=== PATIENT | female | born 1950 | race Caucasian/White ===

== ENCOUNTER 2017-08-20 21:29 | Inpatient (IN) | payer MEDICARE ==
[2017-08-20] MEDS: IV NORMAL SALINE 1000ML BAG 1,000 ML IV (00:10)
[2017-08-20 22:52] LABS: BILIRUBIN,URINE NEGATIVE (NEG); CLARITY,URINE CLEAR; GLUCOSE,URINE >=1000 mg/dL (NEG); NITRITE,URINE NEGATIVE (NEG); PROTEIN,URINE NEGATIVE (NEG-TRACE); UROBILINOGEN,URINE 0.2 mg/dL (0.2 mg/dL)
[2017-08-20 22:55] LABS: COLOR,URINE STRAW
[2017-08-20 22:58] LABS: BACTERIA,URINE 0 /HPF (0-FEW); SQUAMOUS EPITHELIAL CELL,UR FEW /LPF; WBC,URINE 0 /HPF (0-4)
[2017-08-20 22:59] LABS: ADD MAN DIFF? NO
[2017-08-20 23:03] LABS: BASO # 0.1 x10^3/uL (0.0-0.2); BASO % 0 % (0-3); EOS % 0 % (0-3); HEMATOCRIT 45.7 % (36.0-47.0); HEMOGLOBIN 14.7 g/dL (12.0-15.5); LYMPH # 1.8 x10^3/uL (1.0-4.8); LYMPH % 9 % (24-48); MEAN CORPUSCULAR HEMOGLOBIN 28 pg (25-35); MEAN CORPUSCULAR HGB CONC 32 g/dL (31-37); MEAN CORPUSCULAR VOLUME 87 fL (79-100); MONO # 0.9 x10^3/uL (0.0-1.1); MONO % 5 % (0-9); NEUT # 16.7 x10^3uL (1.8-7.7); NEUT % 86 % (31-73); PLATELET COUNT 296 x10^3/uL (140-400); RED BLOOD COUNT 5.23 x10^6/uL (3.50-5.40); RED CELL DISTRIBUTION WIDTH 13.8 % (11.5-14.5); WHITE BLOOD COUNT 19.5 x10^3/uL (4.0-11.0)
[2017-08-20 23:10] LABS: PROTHROMBIN TIME PATIENT 12.3 SEC (11.7-14.0)
[2017-08-20 23:13] LABS: ANION GAP 7 (6-14); BLOOD UREA NITROGEN 30 mg/dL (7-20); BUN/CREATININE RATIO 25 (6-20); CALCIUM 9.2 mg/dL (8.5-10.1); CARBON DIOXIDE 33 mmol/L (21-32); CHLORIDE 101 mmol/L (98-107); CREATININE 1.2 mg/dL (0.6-1.0); GFR 45.1; GLUCOSE 275 mg/dL (70-99); POTASSIUM 3.6 mmol/L (3.5-5.1); SODIUM 141 mmol/L (136-145)
[2017-08-20 23:19] LABS: ALBUMIN 3.4 g/dL (3.4-5.0); ALBUMIN/GLOBULIN RATIO 0.8 (1.0-1.7); ALK PHOS 97 U/L (46-116); ALT (SGPT) 34 U/L (14-59); AST (SGOT) 32 U/L (15-37); TOTAL BILIRUBIN 0.2 mg/dL (0.2-1.0); TOTAL PROTEIN 7.6 g/dL (6.4-8.2)
[2017-08-20 23:22] LABS: % BANDS 4 % (0-9); % LYMPHS 7 % (24-48); % MONOS 4 % (0-10); % SEGS 85 % (35-66)
[2017-08-20 23:23] LABS: PLT ESTIMATE ADEQUATE (ADEQUATE); TOXIC GRANULATION SLIGHT
[2017-08-20 23:23] LABS: TROPONINI < 0.017 ng/mL (0.000-0.055)
[2017-08-21] MEDS: ONDANSETRON PF 4 MG/2 ML VIAL. IV (00:09)
[2017-08-21] MEDS: fentaNYL PF VIAL 100 MCG/2 ML VIAL IV ×3 (00:10→14:35)
[2017-08-21 00:56] LABS: POC GLUCOSE 197 mg/dL (70-99)
[2017-08-21] MEDS: MORPHINE SULFATE 4 MG/ML DISP.SYRIN. IV ×2 (05:35→09:23)
[2017-08-21] MEDS ORDERED: LIDOCAINE 1% PF 2 ML VIAL. ID (08:30)
[2017-08-21] MEDS: IV RINGERS,LACTATED 1000ML 1,000 ML IV (08:30)
[2017-08-21] MEDS ORDERED: HYDROmorphone 2 MG/ML VIAL IV (08:30)
[2017-08-21] MEDS ORDERED: fentaNYL PF VIAL 100 MCG/2 ML VIAL IV (08:30)
[2017-08-21] MEDS ORDERED: PROCHLORPERAZINE 10 MG/2 ML VIAL. IV (08:30)
[2017-08-21] MEDS ORDERED: MORPHINE SULFATE 2 MG/ML DISP.SYRIN. IV (08:30)
[2017-08-21 08:42] LABS: POC GLUCOSE 145 mg/dL (70-99)
[2017-08-21] MEDS: IV NORMAL SALINE 1000ML BAG 1,000 ML IV ×2 (09:31→15:43)
[2017-08-21 11:20] LABS: POC GLUCOSE 81 mg/dL (70-99)
[2017-08-21] MEDS ORDERED: ONDANSETRON PF 4 MG/2 ML VIAL. IV (11:30)
[2017-08-21] MEDS ORDERED: DOCUSATE SODIUM 100 MG CAPSULE. PO (11:30)
[2017-08-21] MEDS ORDERED: hydrALAZINE 20 MG/ML VIAL. IVP (11:30)
[2017-08-21] MEDS ORDERED: DEXTROSE 50% 25 GM / 50ML DISP.SYRIN. IV (11:30)
[2017-08-21] MEDS ORDERED: LIDOCAINE 1% PF 30 ML VIAL. (11:51)
[2017-08-21] MEDS ORDERED: BUPIVACAINE MPF 0.5% 30 ML VIAL. (11:52)
[2017-08-21] MEDS ORDERED: LIDOCAINE 2% PF Vial for OR 5 ML VIAL. (11:56)
[2017-08-21] MEDS ORDERED: DEXAMETHASONE SOD PHOS 20 MG/5 ML VIAL. (11:56)
[2017-08-21] MEDS ORDERED: PHENYLEPHRINE 10 MG/ML VIAL. (11:56)
[2017-08-21] MEDS ORDERED: ONDANSETRON PF 4 MG/2 ML VIAL. (11:56)
[2017-08-21] MEDS ORDERED: SEVOFLURANE 31 TO 60 MINUTES. IH (11:56)
[2017-08-21] MEDS ORDERED: PROPOFOL 20 ML IV (11:56)
[2017-08-21] MEDS: amLODIPine BESYLATE 10 MG TABLET PO (12:00)
[2017-08-21] MEDS: POTASSIUM CHLORIDE 20 MEQ TABLET.ER. PO ×2 (12:00→21:00)
[2017-08-21] MEDS: PARoxetine 20 MG TABLET PO (12:00)
[2017-08-21] MEDS: INSULIN ASPART 300 UNITS/3 ML INSULN.PEN SQ ×2 (12:00→17:00)
[2017-08-21] MEDS: MULTIVITAMIN with MINERAL TABLET. PO (12:00)
[2017-08-21] MEDS: ceFAZolin SODIUM 1 GM in IV DEXTROSE 5% 50 ML IV (12:10)
[2017-08-21] MEDS ORDERED: ePHEDrine PF IN SALINE 50 MG/5 ML DISP.SYRIN IV (12:26)
[2017-08-21] MEDS ORDERED: KETOROLAC 30 MG/ML INJ FOR OR. INJ (12:39)
[2017-08-21] MEDS: MORPHINE SULFATE 5 MG, KETOROLAC 30 MG, ROPIVacaine 0.5% PF 60 ML, EPINEPHrine 0.5 MG i... INT ART (13:42)
[2017-08-21 13:52] LABS: POC GLUCOSE 76 mg/dL (70-99)
[2017-08-21] MEDS: MORPHINE SULFATE 2 MG/ML DISP.SYRIN. IV ×2 (15:46→21:08)
[2017-08-21 16:27] LABS: POC GLUCOSE 118 mg/dL (70-99)
[2017-08-21] MEDS: ceFAZolin SODIUM IV Push 1 GM VIAL. IVP (18:31)
[2017-08-21] MEDS ORDERED: NYSTATIN 100,000 UNIT/GM TOPICAL CREAM 15GM TUBE. TP (21:00)
[2017-08-21 21:46] LABS: POC GLUCOSE 163 mg/dL (70-99)
[2017-08-21] MEDS: ACETAMINOPHEN 325 MG TABLET. PO (22:22)
[2017-08-21] MEDS: DONEPEZIL HCL 10 MG TABLET. PO (22:22)
[2017-08-21] MEDS: INSULIN DETEMIR 300 UNITS/3 ML INSULN.PEN. SQ (22:32)
[2017-08-22] MEDS: ceFAZolin SODIUM IV Push 1 GM VIAL. IVP ×3 (00:30→11:54)
[2017-08-22 04:47] LABS: ADD MAN DIFF? NO
[2017-08-22 04:57] LABS: BASO % 0 % (0-3); EOS % 0 % (0-3); HEMATOCRIT 33.4 % (36.0-47.0); LYMPH # 2.3 x10^3/uL (1.0-4.8); LYMPH % 20 % (24-48); MEAN CORPUSCULAR HEMOGLOBIN 29 pg (25-35); MEAN CORPUSCULAR HGB CONC 33 g/dL (31-37); MEAN CORPUSCULAR VOLUME 88 fL (79-100); MONO # 1.1 x10^3/uL (0.0-1.1); MONO % 10 % (0-9); NEUT # 7.7 x10^3uL (1.8-7.7); NEUT % 70 % (31-73); PLATELET COUNT 195 x10^3/uL (140-400); RED BLOOD COUNT 3.78 x10^6/uL (3.50-5.40); RED CELL DISTRIBUTION WIDTH 14.1 % (11.5-14.5); WHITE BLOOD COUNT 11.1 x10^3/uL (4.0-11.0)
[2017-08-22 05:07] LABS: ANION GAP 8 (6-14); BLOOD UREA NITROGEN 32 mg/dL (7-20); CALCIUM 9.5 mg/dL (8.5-10.1); CARBON DIOXIDE 29 mmol/L (21-32); CHLORIDE 106 mmol/L (98-107); CREATININE 1.8 mg/dL (0.6-1.0); GFR 28.2; GLUCOSE 162 mg/dL (70-99); POTASSIUM 4.8 mmol/L (3.5-5.1); SODIUM 143 mmol/L (136-145)
[2017-08-22 05:23] LABS: FREE T4 1.17 ng/dL (0.76-1.46)
[2017-08-22 05:23] LABS: THYROID STIM HORMONE (TSH) 0.515 uIU/mL (0.358-3.74)
[2017-08-22 07:52] LABS: POC GLUCOSE 104 mg/dL (70-99)
[2017-08-22] MEDS: INSULIN ASPART 300 UNITS/3 ML INSULN.PEN SQ ×4 (08:00→21:30)
[2017-08-22] MEDS: POTASSIUM CHLORIDE 20 MEQ TABLET.ER. PO ×2 (08:13→21:20)
[2017-08-22] MEDS: PARoxetine 20 MG TABLET PO (08:14)
[2017-08-22] MEDS: MULTIVITAMIN with MINERAL TABLET. PO (08:14)
[2017-08-22] MEDS: amLODIPine BESYLATE 10 MG TABLET PO (08:14)
[2017-08-22 11:54] LABS: POC GLUCOSE 238 mg/dL (70-99)
[2017-08-22] MEDS: IV NORMAL SALINE 1000ML BAG 1,000 ML IV (14:09)
[2017-08-22 17:09] LABS: POC GLUCOSE 221 mg/dL (70-99)
[2017-08-22 21:08] LABS: POC GLUCOSE 223 mg/dL (70-99)
[2017-08-22] MEDS: DONEPEZIL HCL 10 MG TABLET. PO (21:19)
[2017-08-22] MEDS: traMADol 50 MG TABLET PO (21:20)
[2017-08-22] MEDS: INSULIN DETEMIR 300 UNITS/3 ML INSULN.PEN. SQ (21:24)
[2017-08-22] MEDS: ENOXAPARIN 40 MG/0.4 ML SYRINGE. SQ (23:03)
[2017-08-23] MEDS: IV NORMAL SALINE 1000ML BAG 1,000 ML IV (03:22)
[2017-08-23 05:26] LABS: ADD MAN DIFF? NO
[2017-08-23 05:34] LABS: BASO % 0 % (0-3); EOS # 0.1 x10^3/uL (0.0-0.7); EOS % 1 % (0-3); LYMPH # 3.6 x10^3/uL (1.0-4.8); LYMPH % 28 % (24-48); MEAN CORPUSCULAR HEMOGLOBIN 29 pg (25-35); MEAN CORPUSCULAR HGB CONC 33 g/dL (31-37); MEAN CORPUSCULAR VOLUME 87 fL (79-100); MONO # 1.1 x10^3/uL (0.0-1.1); MONO % 9 % (0-9); NEUT # 8.1 x10^3uL (1.8-7.7); NEUT % 63 % (31-73); PLATELET COUNT 200 x10^3/uL (140-400); RED BLOOD COUNT 3.79 x10^6/uL (3.50-5.40); RED CELL DISTRIBUTION WIDTH 13.5 % (11.5-14.5); WHITE BLOOD COUNT 12.9 x10^3/uL (4.0-11.0)
[2017-08-23 05:55] LABS: ANION GAP 6 (6-14); BLOOD UREA NITROGEN 19 mg/dL (7-20); CALCIUM 8.8 mg/dL (8.5-10.1); CARBON DIOXIDE 32 mmol/L (21-32); CHLORIDE 101 mmol/L (98-107); CREATININE 0.8 mg/dL (0.6-1.0); GLUCOSE 172 mg/dL (70-99); POTASSIUM 3.7 mmol/L (3.5-5.1); SODIUM 139 mmol/L (136-145)
[2017-08-23] MEDS: INSULIN ASPART 300 UNITS/3 ML INSULN.PEN SQ ×4 (08:00→21:23)
[2017-08-23 08:15] LABS: POC GLUCOSE 142 mg/dL (70-99)
[2017-08-23] MEDS: PARoxetine 20 MG TABLET PO (08:24)
[2017-08-23] MEDS: amLODIPine BESYLATE 10 MG TABLET PO (08:24)
[2017-08-23] MEDS: MULTIVITAMIN with MINERAL TABLET. PO (08:24)
[2017-08-23] MEDS: POTASSIUM CHLORIDE 20 MEQ TABLET.ER. PO ×2 (08:25→21:00)
[2017-08-23 14:59] LABS: POC GLUCOSE 292 mg/dL (70-99)
[2017-08-23 17:23] LABS: POC GLUCOSE 301 mg/dL (70-99)
[2017-08-23] MEDS: ACETAMINOPHEN 325 MG TABLET. PO (17:50)
[2017-08-23 18:24] LABS: POC GLUCOSE 266 mg/dL (70-99)
[2017-08-23 20:50] LABS: POC GLUCOSE 230 mg/dL (70-99)
[2017-08-23] MEDS: DONEPEZIL HCL 10 MG TABLET. PO (21:22)
[2017-08-23] MEDS: ENOXAPARIN 40 MG/0.4 ML SYRINGE. SQ (21:22)
[2017-08-23] MEDS: INSULIN DETEMIR 300 UNITS/3 ML INSULN.PEN. SQ (21:24)
[2017-08-23 23:08] LABS: MRSA BY PCR Negative (Negative)
[2017-08-24] MEDS: ACETAMINOPHEN 325 MG TABLET. PO (00:03)
[2017-08-24 07:51] LABS: POC GLUCOSE 181 mg/dL (70-99)
[2017-08-24] MEDS ORDERED: cloNIDine HCL 0.1 MG TABLET PO (08:00)
[2017-08-24] MEDS ORDERED: ACETAMINOPHEN 325 MG TABLET. PO (08:00)
[2017-08-24] MEDS ORDERED: BISACODYL 10 MG SUPP.RECT. PR (08:15)
[2017-08-24] MEDS: amLODIPine BESYLATE 10 MG TABLET PO (09:08)
[2017-08-24] MEDS: MULTIVITAMIN with MINERAL TABLET. PO (09:08)
[2017-08-24] MEDS: PARoxetine 20 MG TABLET PO (09:08)
[2017-08-24] MEDS: POTASSIUM CHLORIDE 20 MEQ TABLET.ER. PO ×2 (09:08→21:57)
[2017-08-24] MEDS: LACTOBACILLUS RHAMNOSUS GG 1 CAPSULE. PO ×2 (09:11→21:57)
[2017-08-24] MEDS: INSULIN ASPART 300 UNITS/3 ML INSULN.PEN SQ ×5 (09:15→17:46)
[2017-08-24 11:40] LABS: POC GLUCOSE 276 mg/dL (70-99)
[2017-08-24 11:42] LABS: BILIRUBIN,URINE NEGATIVE (NEG); CLARITY,URINE CLEAR; COLOR,URINE YELLOW; GLUCOSE,URINE 250 mg/dL (NEG); NITRITE,URINE NEGATIVE (NEG); PROTEIN,URINE 30 mg/dL (NEG-TRACE)
[2017-08-24 12:01] LABS: BACTERIA,URINE 0 /HPF (0-FEW); RBC,URINE 0 /HPF (0-2); SQUAMOUS EPITHELIAL CELL,UR FEW /LPF; WBC,URINE 0 /HPF (0-4)
[2017-08-24 16:34] LABS: POC GLUCOSE 246 mg/dL (70-99)
[2017-08-24 21:21] LABS: POC GLUCOSE 169 mg/dL (70-99)
[2017-08-24] MEDS: ENOXAPARIN 40 MG/0.4 ML SYRINGE. SQ (21:57)
[2017-08-24] MEDS: DONEPEZIL HCL 10 MG TABLET. PO (21:57)
[2017-08-24] MEDS: INSULIN DETEMIR 300 UNITS/3 ML INSULN.PEN. SQ (21:59)
[2017-08-25] MEDS: INSULIN ASPART 300 UNITS/3 ML INSULN.PEN SQ ×4 (07:30→12:43)
[2017-08-25 08:34] LABS: POC GLUCOSE 118 mg/dL (70-99)
[2017-08-25] MEDS: POTASSIUM CHLORIDE 20 MEQ TABLET.ER. PO (09:00)
[2017-08-25] MEDS: MULTIVITAMIN with MINERAL TABLET. PO (09:59)
[2017-08-25] MEDS: PARoxetine 20 MG TABLET PO (09:59)
[2017-08-25] MEDS: LACTOBACILLUS RHAMNOSUS GG 1 CAPSULE. PO (09:59)
[2017-08-25] MEDS: amLODIPine BESYLATE 10 MG TABLET PO (10:00)
[2017-08-25 12:38] LABS: POC GLUCOSE 219 mg/dL (70-99)
[2017-08-25] MEDS ORDERED: PNEUMOCOCCAL VAX SCREEN BY RX. MC (13:30)
[2017-08-25] MEDS: PNEUMOC CONJ VACC 23-VALENT 0.5 ML VIAL. VAX IM (14:41)
== END 2017-08-25 15:15 | DRG 480 ==
LOC: ER 21:29 → 4 NORTH 22:44
PROC: 0QS636Z Reposition Right Upper Femur with Intramedullary Internal Fixation Device, Percutaneous Approach (ICD-10-PCS; principal; 2017-08-21 12:00)
DX: S72.141A Displaced intertrochanteric fracture of right femur, initial encounter for closed fracture (principal); N17.0 Acute kidney failure with tubular necrosis; E04.1 Nontoxic single thyroid nodule; D72.829 Elevated white blood cell count, unspecified; E04.2 Nontoxic multinodular goiter; E11.9 Type 2 diabetes mellitus without complications; I69.320 Aphasia following cerebral infarction; E78.5 Hyperlipidemia, unspecified; F02.80 Dementia in other diseases classified elsewhere, unspecified severity, without behavioral disturbance, psychotic disturbance, mood disturbance, and anxiety; F32.9 Major depressive disorder, single episode, unspecified; G30.9 Alzheimer's disease, unspecified; I10 Essential (primary) hypertension; W18.39XA Other fall on same level, initial encounter; Z66 Do not resuscitate; Z79.4 Long term (current) use of insulin; Z79.899 Other long term (current) drug therapy; Z82.49 Family history of ischemic heart disease and other diseases of the circulatory system; I69.364 Other paralytic syndrome following cerebral infarction affecting left non-dominant side; Z90.49 Acquired absence of other specified parts of digestive tract; Y93.89 Activity, other specified; Y92.89 Other specified places as the place of occurrence of the external cause; Y99.8 Other external cause status
CPT/HCPCS: 36415; 70450; 71045; 72125; 73502; 76000; 76536; 80048; 80053; 81001; 82306; 82962; 84439; 84443; 84481; 84484; 85007; 85025; 85610; 87641; 90732; 93005; 96374; 96375; 97162-GP; 97167-GO; 97530-GO; 97530-GP; 97535-GO; 99285; 99285-25; A4215; C1713; C1887; J0171; J0690; J1100; J1650; J1815; J1885; J2270; J2405; J2704; J2795; J3010; J3490; J7030